=== PATIENT | female | born 1985 | race Caucasian/White ===

== ENCOUNTER 2018-08-26 20:09 | Emergency (ER) | payer SELFPAY ==
[2018-08-26 20:12] VITALS: BP 140/104; PULSE 110; PULSE 116; RESP 18; RESP 19; TEMP 37.3; O2SAT 100; BMI 24.9
[2018-08-26 22:17] VITALS: BP 126/103; PULSE 90; RESP 16; O2SAT 97
[2018-08-26 22:19] LABS: Absolute Neutrophil Count 1.5 X10^3/uL (2.0-7.7); Basophil# 0.05 X10^3/uL; Basophil% 1.2 % (0-1); Eosinophil# 0.15 X10^3/uL; Eosinophils% 3.5 % (0-5); Hematocrit 43.3 % (37-47); Hemoglobin 13.1 g/dl (12.0-15.0); Lymphocyte % 50.8 % (19-41); Mean Corp Hgb Conc 30.3 g/gl (32-36); Mean Corpuscular Hgb 27.9 pg (27.0-32.0); Mean Corpuscular Volume 92.3 fL (81-99); Mean Platelet Vol. 9.3 fl (6.2-12.0); Monocyte% 9.2 % (0-10); Neutrophil # 1.53 X10^3/uL (2.7-7.7); Neutrophil % 35.3 % (47-70); Platelet Count 289 K/mm3 (150-450); RBC Distribution Width CV 16.6 % (11.6-14.6); RBC Distribution Width SD 56.2 fl (35.1-43.9); Red Blood Count 4.69 M/mm3 (4.2-5.4); White Blood Count 4.3 K/mm3 (4.4-11.0)
[2018-08-26 22:22] LABS: Anion Gap 11 (5-15); BUN 8 mg/dL (7-18); Calcium,Total 8.2 mg/dL (8.5-10.1); Chloride 107 mmol/L (98-107); Creatinine, Serum 0.53 mg/dL (0.55-1.02); EST Glomerular Filtration Rate 142 mL/min (>60); Est Glom Filt Rate - Afr Amer 172 mL/min (>60); Estimated Creatinine Clearance 143.98 ml/min; Glucose 86 mg/dL (74-106); Potassium 3.7 mmol/L (3.5-5.1); Sodium Level 144 mmol/L (136-145)
[2018-08-26 22:28] LABS: POSITIVE COUNT NO; POSITIVE DIFFERENTIAL NO; POSITIVE MORPHOLOGY NO
--- NOTE | 2018-08-26 23:15 | ED.VISSUMM ---
- ER Visit Summary Date of Service: 08/26/18 Chief Complaint: Medication withdrawal History of Present Illness: The patient is a 33 F who presents with increased anxiety, paresthesias, and confusion at times is been getting worse over the past 2 days. Patient states she has been out of her Lexapro for the past 4 days. Patient states she feels paresthesias in her hands and feet. Patient denies any weakness. Patient states she is been feeling jittery as well. Patient denies any chest pain or shortness of breath. Patient denies any nausea or vomiting. Physical Examination: Vital signs are stable with the exception of a mild tachycardia of 116. Patient is afebrile. Patient is in no acute distress. Oral mucosa is pink and moist. Neck is supple. Trachea is midline. There is no JVD noted. Heart was regular rate and rhythm. Lungs are clear and equal bilateral. Abdomen is soft. Bowel sounds are normal. There is no tenderness. There is no guarding noted. Skin is warm dry. Cranial nerves II through XII are intact. There are no focal motor or sensory deficits noted. The remaining physical exam is within normal limits. Test Results: CBC and basic metabolic profile were within normal limits. Emergency Department Course and Treatment: Patient was given a dose of Lexapro here. She was given a prescription for Lexapro. Patient was instructed to follow-up with a primary care physician in 7-10 days. Patient understood and was agreeable with the plan. All questions were answered. Disposition: Discharge home Impression: Medication withdrawal This note was generated with [employer] dictation software. It may contain incorrect words, spelling, and punctuation that were not noted in review of the chart prior to signing ED Disposition - Plan for ED Patient: Disposition: Home or Assisted Living Chief Complaint: General Illness Diagnosis: Medication withdrawal Instructions: ED Panic Attack Prescriptions: Venlafaxine XR [Effexor Xr] 150 mg PO DAILY #30 cap.er.24h Referrals: Care Physician,No Primary [Primary Care Provider] - Juanita Guadarrama [NON-STAFF] -
[2018-08-26] MEDS: Venlafaxine XR 150 MG Capsule PO (23:32)
[2018-08-26 23:34] VITALS: BP 132/101; PULSE 95; RESP 16; O2SAT 97
== END 2018-08-26 23:39 | disposition home or self-care (01) ==
PROVIDERS: Emergency Provider Emergency Medicine
DX: F15.93 Other stimulant use, unspecified with withdrawal (principal); F41.9 Anxiety disorder, unspecified; F32.9 Major depressive disorder, single episode, unspecified; Z72.0 Tobacco use; Z79.899 Other long term (current) drug therapy
CPT/HCPCS: 80048; 85025; 99285; A4216

== ENCOUNTER → 2018-10-07 15:35 | Outpatient (CLI) | payer SELFPAY ==
[2018-10-07 18:11] LABS: Anion Gap 9 (5-15); BUN 6 mg/dL (7-18); BUN/Creat Ratio 10.2 RATIO (10-20); Calcium,Total 8.8 mg/dL (8.5-10.1); Chloride 105 mmol/L (98-107); Cholesterol 178 mg/dL (200); Creatinine, Serum 0.59 mg/dL (0.55-1.02); EST Glomerular Filtration Rate 126 mL/min (>60); Est Glom Filt Rate - Afr Amer 152 mL/min (>60); Glucose 101 mg/dL (74-106); High Density Lipoprotein 63 mg/dL; Potassium 4.2 mmol/L (3.5-5.1); Sodium Level 141 mmol/L (136-145); Thyroid Stim Hormone (TSH) 1.26 uIU/mL (0.358-3.74); Triglycerides 87 mg/dL; Very Low Density Lipoprotein 17 mg/dL (5-40)
== END ==
PROVIDERS: Visit Provider Family Medicine
DX: Z00.00 Encounter for general adult medical examination without abnormal findings (principal)
CPT/HCPCS: 36415; 80048; 80061; 84443

== ENCOUNTER 2021-10-16 14:13 | Inpatient (IN) | payer MEDICAID, SELFPAY ==
[2021-10-16 14:14] VITALS: BP 132/94; PULSE 114; RESP 16; TEMP 36.9; O2SAT 100; BMI 22.4
--- NOTE | 2021-10-16 15:25 | EDS_ITS ---
HPI HPI - GI History of Present Illness Chief Complaint: Edema Detail of Chief Complaint: Diarrhea. Informant: patient Abdominal Pain/Flank Pain Onset: Days Context: Gradual Onset Timing: Intermittent Current Severity: Mild Maximum Severity: Mild Worsened by: Nothing Relieved by: Nothing Nausea/Vomiting/Emesis GI Symptom: Positive for Nausea and Vomiting Onset: Days Severity: Mild Diarrhea/Melena/Hematochezia GI Symptom: Positive for Diarrhea; Negative for Melena and Hematochezia Onset: Days Stool Quality: Positive for Watery Severity: Moderate Associated Symptoms Associated Symptoms: Negative for Dysuria, Frequency, Hematuria and Urgency Narrative Narrative: 36-year-old female history of liver cirrhosis and C. difficile. Was actually hospitalized at [facility] because she lives in [place] about 2 weeks ago. She had to be discharged in the hospital because her mother recently and she is now in this area dealing with that issue and seeing family. States that she normally gets paracentesis to drain ascites about every 2 weeks has been 3 weeks since her last paracentesis. She also states that her diarrhea has gotten worse. She is having nausea and vomiting. No fever. No dysuria. She has had all the symptoms in the past. Prior similar symptoms: Yes Recent Illness/Hospitalization: Yes [facility] Medical History Anxiety and depression Cirrhosis, alcoholic Home Medications acamprosate 666 mg PO TID 10/16/21 [History Last Taken Unknown] cholecalciferol (vitamin D3) 1,250 mcg PO QWEEK 10/16/21 [History Last Taken Unknown] escitalopram oxalate [Lexapro] 10 mg PO DAILY 10/16/21 [History Last Taken Unknown] furosemide 40 mg PO DAILY 10/16/21 [History Last Taken Unknown] gabapentin 300 mg PO QHS 10/16/21 [History Last Taken Unknown] lactulose 20 g PO DAILY 10/16/21 [History Last Taken Unknown] spironolactone 100 mg PO DAILY 10/16/21 [History Last Taken Unknown] Allergy/AdvReac Type Severity Reaction Status Date / Time No Known Allergies Allergy Verified 10/16/21 14:18 Surgical History History of tonsillectomy Hx of breast reduction, elective Social History Smoking Status: Current some day smoker tobacco type: cigarettes ROS ROS ED ROS Narrative Nausea, vomiting and diarrhea. Review of Systems ROS Unobtainable: Denies due to encephalopathy Constitutional Constitutional ED: Denies chills or fever(s) ENT ENT ED: Denies ear pain Cardiovascular Cardiovascular: Denies chest pain or palpitations Respiratory/Chest Respiratory/Chest: Denies cough, dyspnea or sputum Gastrointestinal Gastrointestinal: Reports abdominal pain, diarrhea, nausea and vomiting Genitourinary Genitourinary ED: Denies dysuria Musculoskeletal Musculoskeletal: Denies myalgias Integumentary Denies rash Neurologic Neurologic: Denies headache(s) Psychiatric Psychiatric: Denies depression Endocrine Endocrinology: Denies polyuria Hematologic/Lymphatic Hematologic/Lymphatic: Denies easy bruising Allergic/Immunologic Allergic/Immunologic ED: Denies urticaria EXAM Physical Exam Narrative Exam Narrative: 36-year-old female no acute distress vital signs stable tachycardic.. H EENT exam LoJaimiess memories. Neck nontender no JVD. Lungs clear to auscultation. Heart tachycardic rate about 114 no murmur. Abdomen distended with ascites. Nontender. No peritoneal signs. Moving all 4 extremities. The extremities are thin. Cachectic. Normal client support consultant strength. Normal dorsi plantar flexion. No edema. Neurologically she is awake and alert with no focal motor deficits. Const Vital Signs: 10/16/21 14:14 Temperature 98.5 F Temperature Source Temporal Pulse Rate 114 H Respiratory Rate 16 Blood Pressure 132/94 H Blood Pressure Mean 106 Pulse Ox 100 Oxygen Delivery Method Room Air Positive well nourished, well developed and cachectic; Negative for obese, contractures or unkempt General Appearance ED: well developed, cachectic and NAD; Negative for unkempt, contractures or pallor Nutritional Appearance: cachectic; Negative for obese HEENT Reports dry mucous membranes normocephalic and atraumatic Mouth ED: Yes dry mucous membranes Mouth: dry mucous membranes Eyes PERRL and EOMs intact bilaterally Neck no lymphadenopathy, supple and no JVD General: Negative for tenderness Resp normal respiratory effort and clear to auscultation bilaterally Auscultation: Negative for rales, rhonchi or wheezes Cardio regular rhythm and no murmurs; Negative for regular rate Rate: tachycardic GI non-tender and no masses; Negative for non-distended GI Narrative: Distended with ascites fluid. Auscultation: normoactive bowel sounds Palpation: soft; Negative for tender, guarding or rigid Back/Spine no CVA tenderness General Back: Negative for CVA tenderness Cervical Spine: Negative for cervical spine tenderness Thoracic Spine / Upper Back: Negative for thoracic spinal tenderness Extremity full ROM General Extremety ED: Negative for edema or tenderness General Extremity: Negative for edema Neuro moves all extremities Sensorium / Orientation: alert, oriented to person, oriented to place and oriented to time; Negative for orientation impaired, confused, lethargic or stuporous Motor Exam: strength 5/5 throughout Psych mental status grossly normal and thought process normal Appearance: Negative for unkempt Mood & Affect: Negative for depressed or tearful Skin no wounds General Skin Exam: Negative for jaundice or pallor Lesions: no lesions Rashes: no rashes MDM MDM MDM Narrative Medical decision making narrative: 36-year-old female known history of cirrhosis and C. difficile. Having diarrhea. Requested to have paracentesis I explained to her that we did not have that available on the weekend since her interventional radiologist is here Sunday through Sunday. Patient clinically looks dehydrated. She will be treated with IV fluids. Screening labs are being obtained. She will also be given Zofran for nausea. Lab Data Attestation: I reviewed the patient's lab results. Lab results narrative: CBC showed elevated white count of 14.2. H&H 10.1 and 30.7. Electrolytes show sodium 133. Gap of 8 normal BUN and creatinine of 5 and 0.8. Liver enzymes unremarkable other than a total bilirubin of 3.5. Alkaline phosphatase 147. Lipase 42. UA negative. Labs: Laboratory Results - last 24 hr 10/16/21 10/16/21 10/16/21 15:35 15:35 16:30 WBC 14.2 H RBC 3.34 L Hgb 10.1 L Hct 30.7 L MCV 91.9 MCH 30.2 MCHC 32.9 RDW Std Deviation 52.4 H RDW Coeff of [place] 15.6 H Plt Count 318 MPV 8.9 Immature Gran % (Auto) 0.400 Neut % (Auto) 71.6 H Lymph % (Auto) 19.0 [place] % (Auto) 7.0 Eos % (Auto) 1.0 Baso % (Auto) 1.0 Absolute Neuts (auto) 10.2 H Absolute Lymphs (auto) 2.70 Nucleated RBC % 0 Sodium 133 L Potassium 3.3 L Chloride 96 L Carbon Dioxide 29.0 Anion Gap 8 BUN 5 L Creatinine 0.81 Estim Creat Clear Calc 95.17 Est GFR (MDRD) Af Amer 104 Est GFR (MDRD) Non-Af 86 BUN/Creatinine Ratio 6.2 L Glucose 106 Calcium 9.0 Total Bilirubin 3.50 H AST 40 H ALT 18 Alkaline Phosphatase 147 H Total Protein 6.0 L Albumin 2.7 L Globulin 3.3 Albumin/Globulin Ratio 0.8 L Lipase 42 L Urine Color Yellow Urine Clarity Sl. Cloudy Urine pH 7.0 Ur Specific [place] 1.010 Urine Protein 30 H Urine Glucose (UA) Normal Urine Ketones Negative Urine Occult Blood Negative Urine Nitrite Negative Urine Bilirubin Negative Urine Urobilinogen Normal Ur Leukocyte Esterase 25 H Urine RBC 0 SEEN Urine WBC 0-5 SEEN Ur Squamous Epith Cells 0-5 SEEN Amorphous Sediment 1+ PHOS Urine Bacteria 0 SEEN Urine Mucus 0 SEEN Discharge Plan Triage Chief Complaint: Edema ED Provider: Silvestre Naranjo Dx/Rx/DC Orders Prescriptions: No Action furosemide 40 mg Tablet 40 mg PO DAILY RF: 0 spironolactone 100 mg Tablet 100 mg PO DAILY RF: 0 gabapentin 300 mg Capsule 300 mg PO QHS RF: 0 escitalopram oxalate [Lexapro] 10 mg Tablet 10 mg PO DAILY RF: 0 acamprosate 333 mg Tablet,Delayed Release (Dr/Ec) 666 mg PO TID RF: 0 cholecalciferol (vitamin D3) 1,250 mcg (50,000 unit) Capsule 1,250 mcg PO QWEEK RF: 0 lactulose 20 gram/30 mL Solution 20 g PO DAILY RF: 0
[2021-10-16] MEDS: 0.9% Normal Saline 1,000 ML 1000 ML IV (15:38)
[2021-10-16] MEDS: Ondansetron 4 MG/2 ML Vial IV (15:38)
[2021-10-16 15:47] LABS: Absolute Neutrophil Count 10.2 X10^3/uL (2.0-7.7); Basophil# 0.14 X10^3/uL; Eosinophil# 0.14 X10^3/uL; Hematocrit 30.7 % (37-47); Hemoglobin 10.1 g/dL (12.0-15.0); Mean Corp Hgb Conc 32.9 g/dL (32-36); Mean Corpuscular Hgb 30.2 pg (27.0-32.0); Mean Corpuscular Volume 91.9 fL (81-99); Mean Platelet Vol. 8.9 fl (6.2-12.0); Monocyte# 0.99 X10^3/uL; NRBC Flagged by Analyzer 0 % (0-5); Neutrophil # 10.21 X10^3/uL (2.7-7.7); Neutrophil % 71.6 % (47-70); Platelet Count 318 K/mm3 (150-450); RBC Distribution Width CV 15.6 % (11.6-14.6); RBC Distribution Width SD 52.4 fl (35.1-43.9); Red Blood Count 3.34 M/mm3 (4.2-5.4); White Blood Count 14.2 K/mm3 (4.4-11.0)
[2021-10-16 16:02] LABS: ALB/GLOB Ratio 0.8 RATIO (0.9-2.4); AST(SGOT) 40 U/L (15-37); Alanine Aminotransfer ALT/SGPT 18 U/L (13-56); Albumin, Serum 2.7 g/dL (3.2-5.0); Alkaline Phosphatase 147 U/L (45-117); Anion Gap 8 (5-15); BUN 5 mg/dL (7-18); BUN/Creat Ratio 6.2 RATIO (10-20); Chloride 96 mmol/L (98-107); Creatinine, Serum 0.81 mg/dL (0.55-1.02); EST Glomerular Filtration Rate 86 mL/min (>60); Est Glom Filt Rate - Afr Amer 104 mL/min (>60); Estimated Creatinine Clearance 95.17 ml/min; Globulin 3.3 g/dL (2.2-4.2); Glucose 106 mg/dL (74-106); Lipase 42 U/L (73-393); Potassium 3.3 mmol/L (3.5-5.1); Sodium Level 133 mmol/L (136-145)
[2021-10-16 16:47] LABS: Bacteria 0 SEEN /hpf (None Seen); Color, Urine Yellow (Yellow); Glucose, Dipstick Normal (Normal); Ketone-Dipstick Negative (Negative); Leukocyte Esterase-Dipstick 25 /ul (Negative); Mucous, Urine 0 SEEN /hpf (<or=2+); Nitrite-Dipstick Negative (Negative); Occult Blood-Urine Negative /ul (Negative); Protein-Dipstick 30 mg/dl (Negative); Urine Bilirubin Dipstick Negative (Negative); Urine Clarity Sl. Cloudy (Clear); Urine Urobilinogen Normal (Normal)
[2021-10-16 16:53] LABS: Red Blood Cells-Urine 0 SEEN /hpf (0-5)
[2021-10-16 16:54] LABS: Amorphous Sediment 1+ PHOS; Squamous Epithelial Cells - UA 0-5 SEEN /hpf (5-10); White Blood Cells 0-5 SEEN /hpf (0-5)
[2021-10-16 18:16] VITALS: BP 119/72; PULSE 97; RESP 16; TEMP 36.9; O2SAT 100
--- NOTE | 2021-10-16 18:42 | PCM.HP.STD ---
HPI - General General Date of Admission: 10/16/21 Date of Service: 10/16/21 Chief Complaint: Abdominal pain and diarrhea HPI Narrative STEF DOLAN, is a 36 F who presents presents with increased abdominal pain and ascites and refractory diarrhea. Patient has a history of alcoholic cirrhosis with recent meld score of around 12-13. She is being evaluated at the [facility] for her cirrhosis but is not a transplant candidate yet. Patient 2 weeks ago was being treated for C. difficile colitis. Patient left the hospital with vancomycin as she had to come to this area for the of her mother. Patient completed the vancomycin about 3 days ago and noted that the diarrhea got worse afterwards. Patient also has ascites which she gets drained roughly every 2 weeks and has scheduled appointment but she missed her last appointment due to the of her mother. Patient has a follow-up appointment this Sunday but she does not feel that she can make and is requesting a paracentesis. [facility] Medical History Anxiety and depression Cirrhosis, alcoholic Home Medications acamprosate 666 mg PO TID 10/16/21 [History Last Taken Unknown] cholecalciferol (vitamin D3) 1,250 mcg PO QWEEK 10/16/21 [History Last Taken Unknown] escitalopram oxalate [Lexapro] 10 mg PO DAILY 10/16/21 [History Last Taken Unknown] furosemide 40 mg PO DAILY 10/16/21 [History Last Taken Unknown] gabapentin 300 mg PO QHS 10/16/21 [History Last Taken Unknown] lactulose 20 g PO DAILY 10/16/21 [History Last Taken Unknown] spironolactone 100 mg PO DAILY 10/16/21 [History Last Taken Unknown] Allergy/AdvReac Type Severity Reaction Status Date / Time No Known Allergies Allergy Verified 10/16/21 14:18 Surgical History History of tonsillectomy Hx of breast reduction, elective Social History (Updated 10/16/21 @ 18:[address] Sharan Blackmon DO) Smoking Status: Current some day smoker tobacco type: cigarettes alcohol intake: former details: Quit but 8 to 9 months ago ROS ROS Narrative Not eating much. All review of systems were negative except as mentioned above in the history of present illness and the other review of systems. Vital Signs Vital Signs Vital Signs: 10/16/21 14:14 10/16/21 18:16 Temperature 36.9 C 36.9 C Temperature Source Temporal Temporal Pulse Rate 114 H 97 Respiratory Rate 16 16 Blood Pressure 132/94 H 119/72 Blood Pressure Mean 106 87 Pulse Ox 100 100 Oxygen Delivery Method Room Air Room Air Weight Weight: 64.864 kg Body Mass Index (BMI) 22.4 Physical Exam Const alert Constitutional Narrative: Appears older than stated age. Gaunt. General Appearance: cooperative HEENT normocephalic and head/scalp atraumatic Neck no lymphadenopathy Neck Narrative: No thyromegaly Resp normal respiratory effort, no retractions, no use of accessory muscles and clear to auscultation bilaterally Cardio regular rate and regular rhythm Cardio Narrative: 2 out of 6 holosystolic murmur GI GI Narrative: Markedly distended but not taut. Minimal tenderness. Umbilicus almost smoothed over due to the distention. Extremity normal to inspection and no clubbing, cyanosis or edema Skin no rashes or lesions noted Skin Narrative: Jaundice ashen appearance. Neuro Sensorium / Orientation: awake and alert Psych affect normal Results Lab / Micro Data Result Diagrams: 10/16/21 15:35 10/16/21 15:35 Labs: Laboratory Results - last 24 hr 10/16/21 15:35: WBC 14.2 H, RBC 3.34 L, Hgb 10.1 L, Hct 30.7 L, MCV 91.9, MCH 30.2, MCHC 32.9, RDW Std Deviation 52.4 H, RDW Coeff of [place] 15.6 H, Plt Count 318, MPV 8.9, Immature Gran % (Auto) 0.400, Neut % (Auto) 71.6 H, Lymph % (Auto) 19.0, [place] % (Auto) 7.0, Eos % (Auto) 1.0, Baso % (Auto) 1.0, Absolute Neuts (auto) 10.2 H, Absolute Lymphs (auto) 2.70, Nucleated RBC % 0 10/16/21 15:35: Sodium 133 L, Potassium 3.3 L, Chloride 96 L, Carbon Dioxide 29.0, Anion Gap 8, BUN 5 L, Creatinine 0.81, Estim Creat Clear Calc 95.17, Est GFR (MDRD) Af Amer 104, Est GFR (MDRD) Non-Af 86, BUN/Creatinine Ratio 6.2 L, Glucose 106, Calcium 9.0, Total Bilirubin 3.50 H, AST 40 H, ALT 18, Alkaline Phosphatase 147 H, Total Protein 6.0 L, Albumin 2.7 L, Globulin 3.3, Albumin/Globulin Ratio 0.8 L, Lipase 42 L 10/16/21 16:30: Urine Color Yellow, Urine Clarity Sl. Cloudy, Urine pH 7.0, Ur Specific [place] 1.010, Urine Protein 30 H, Urine Glucose (UA) Normal, Urine Ketones Negative, Urine Occult Blood Negative, Urine Nitrite Negative, Urine Bilirubin Negative, Urine Urobilinogen Normal, Ur Leukocyte Esterase 25 H, Urine RBC 0 SEEN, Urine WBC 0-5 SEEN, Ur Squamous Epith Cells 0-5 SEEN, Amorphous Sediment 1+ PHOS, Urine Bacteria 0 SEEN, Urine Mucus 0 SEEN Assessment & Plan Assessment/Plan (1) Ascites due to alcoholic cirrhosis: (2) C. difficile colitis: PLAN: 1. 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 While she is in the hospital, for 1 day she received metronidazole. Patient that she does not have severe C. difficile and no feel that there is any indication for IV metronidazole but treat her for C. difficile with vancomycin again. Would recommend 10-day course with a taper as this is recurrent. The taper would begin after the 10 days and would be 3 times daily for a week twice daily for a week then daily for a week then every 48 hours for 1 week and then every 3 days for 1 week. If she is refractory to the vancomycin she may need to be put on Dificid or evaluation for fecal transplant. I advised patient that she would not be receiving any medications to slow her bowels, such as loperamide. 2. Ascites, massive Secondary to alcoholic cirrhosis She is not hot nor is there any clinical suspicion for spontaneous bacterial peritonitis She does not feel that she can wait until this coming Sunday. I told her that we can see if our interventional radiologist is available tomorrow. Told her I'm not sure if he is available but if he is then we can have the paracentesis performed. Patient does have a large amount of ascites and I suspect that she will require albumin afterwards. I put in orders for albumin to be administered after her paracentesis tomorrow assuming that can be done. Patient is on furosemide as well as spironolactone. Will increase her furosemide from 40 daily to twice daily and continue with spironolactone at 100 daily. Patient will need to follow-up with her forest economics professor. Patient is having abdominal pain so we'll have oxycodone ordered for but I would not prescribe that for her upon discharge. 3. Cirrhosis Alcoholic Patient seeing wind instrument repairer at [facility] is undergoing evaluation for liver transplant though not on the list at this point time. Still smokes which she is well aware that she needs to quit in order to be a candidate 4. VTE prophylaxis: Not indicated given her observation status. Charges/Coding Visit Charges OBSV E&M: 90333 Initial observation care L3
[2021-10-16 18:45] VITALS: BP 119/72; PULSE 97; RESP 16; TEMP 36.9; O2SAT 100
--- NOTE | 2021-10-16 19:33 | US_ITS ---
PROCEDURE: Ultrasound guided paracentesis. DATE OF EXAMINATION: 10/17/2021. INDICATION: Female, 36 years old. Ascites. PHYSICIAN: Obie Mijares M.D. TECHNIQUE: The risks, benefits, and alternatives to the procedure were explained to the patient. The specific risks of bleeding, infection, and damage to bowel were detailed and accepted. Witnessed informed consent was obtained. The abdomen was ultrasonographically surveyed. An appropriate pocket of fluid was identified at the left lower quadrant. The skin were cleaned and prepped in the usual sterile fashion. Using ultrasound guidance, the peritoneal cavity was accessed with a 5-Macedonian paracentesis needle/catheter system. The trocar was removed. A total of 9050 ml of lakesha-colored fluid were removed from the peritoneal cavity. The catheter was removed and a sterile dressing was applied. The procedure was well tolerated. US/Paracentesis with US IMPRESSION: Ultrasound guided paracentesis. Electronically Signed: Obie Mijares MD at 15:25 EST ,
[2021-10-16 19:49] VITALS: BMI 22.6
[2021-10-16 19:50] VITALS: BP 126/81; PULSE 88; RESP 24; TEMP 37.5; O2SAT 100
[2021-10-16] MEDS: oxyCODONE 5 MG Tablet PO (20:40)
[2021-10-16] MEDS: Potassium Chloride Oral Tablet 20 MEQ 40 MEQ PO (20:40)
[2021-10-16] MEDS: Gabapentin 300 MG Capsule PO (20:41)
[2021-10-16] MEDS: Ergocalciferol 1.25 MG (50, 000 UNIT) Capsule PO (21:52)
[2021-10-17] MEDS: Vancomycin 125 MG/5 ML Susp PO.SYRINGE PO ×4 (00:20→18:32)
[2021-10-17 01:50] VITALS: BP 135/92; PULSE 105; RESP 18; TEMP 37.3; O2SAT 98
[2021-10-17] MEDS: oxyCODONE 5 MG Tablet PO ×3 (02:29→19:59)
[2021-10-17] MEDS: LORazepam 1 MG Tablet PO (03:29)
[2021-10-17 06:01] LABS: Absolute Lymphocyte Count 3.88 X10^3/uL (0.83-4.51); Absolute Neutrophil Count 9.1 X10^3/uL (2.0-7.7); Basophil# 0.18 X10^3/uL; Basophil% 1.2 % (0-1); Eosinophil# 0.43 X10^3/uL; Eosinophils% 2.9 % (0-5); Hematocrit 27.5 % (37-47); Hemoglobin 8.7 g/dL (12.0-15.0); Lymphocyte # 3.88 X10^3/ul (0.83-4.51); Lymphocyte % 26.6 % (19-41); Mean Corp Hgb Conc 31.6 g/dL (32-36); Mean Corpuscular Hgb 29.1 pg (27.0-32.0); Mean Platelet Vol. 8.9 fl (6.2-12.0); Monocyte# 0.92 X10^3/uL; Monocyte% 6.3 % (0-10); NRBC Flagged by Analyzer 0 % (0-5); Neutrophil # 9.14 X10^3/uL (2.7-7.7); Neutrophil % 62.6 % (47-70); Platelet Count 307 K/mm3 (150-450); RBC Distribution Width CV 15.4 % (11.6-14.6); RBC Distribution Width SD 51.3 fl (35.1-43.9); Red Blood Count 2.99 M/mm3 (4.2-5.4); White Blood Count 14.6 K/mm3 (4.4-11.0)
[2021-10-17 06:13] LABS: International Normalized Ratio 1.5; Prothrombin Time (Protime)PT. 17.7 SECONDS (11.7-14.9)
[2021-10-17 06:29] LABS: ALB/GLOB Ratio 0.8 RATIO (0.9-2.4); AST(SGOT) 33 U/L (15-37); Alanine Aminotransfer ALT/SGPT 17 U/L (13-56); Albumin, Serum 2.4 g/dL (3.2-5.0); Alkaline Phosphatase 139 U/L (45-117); Anion Gap 6 (5-15); BUN 5 mg/dL (7-18); BUN/Creat Ratio 6.5 RATIO (10-20); Calcium,Total 7.9 mg/dL (8.5-10.1); Chloride 96 mmol/L (98-107); Creatinine, Serum 0.76 mg/dL (0.55-1.02); EST Glomerular Filtration Rate 92 mL/min (>60); Est Glom Filt Rate - Afr Amer 111 mL/min (>60); Estimated Creatinine Clearance 101.43 ml/min; Globulin 3.1 g/dL (2.2-4.2); Glucose 115 mg/dL (74-106); Magnesium 2.1 mg/dL (1.6-2.6); Potassium 3.5 mmol/L (3.5-5.1); Protein, Total 5.5 g/dL (6.4-8.2); Sodium Level 130 mmol/L (136-145)
[2021-10-17 08:01] VITALS: BP 128/90; PULSE 102; RESP 18; TEMP 36.8; O2SAT 98
--- NOTE | 2021-10-17 09:05 | PCM.PN.HOSP ---
Subjective Subjective Patient completed 7 days of p.o. vancomycin and her diarrhea was better but it recurred with large volume high frequency diarrhea. Currently does not have abdominal pain. Patient also has large ascites due to decompensated alcoholic cirrhosis. Follows [facility] transplant clinic undergoing work-up for transplant listing.Did not drink alcohol for last 1 year. Objective Data Objective Data Vital Signs: Vital Signs Temp Pulse Resp BP Pulse Ox 98.2 F 102 H 18 128/90 H 98 10/17/21 08:01 10/17/21 08:01 10/17/21 08:01 10/17/21 08:01 10/17/21 08:01 Oxygen Delivery Method Room Air Weight: 144 lb 13.499 oz Body Mass Index (BMI) 22.6 Intake & Output: Intake and Output for Last 24 Hours 10/15/21 10/16/21 10/17/21 23:59 23:59 23:59 Intake Total 1000 / 1600 800 / 800 Balance 1000 / 1600 800 / 800 Lab / Micro Data Result Diagrams: 10/17/21 05:44 10/17/21 05:44 Labs: Laboratory Results - last 24 hr 10/16/21 15:35: WBC 14.2 H, RBC 3.34 L, Hgb 10.1 L, Hct 30.7 L, MCV 91.9, MCH 30.2, MCHC 32.9, RDW Std Deviation 52.4 H, RDW Coeff of [place] 15.6 H, Plt Count 318, MPV 8.9, Immature Gran % (Auto) 0.400, Neut % (Auto) 71.6 H, Lymph % (Auto) 19.0, [place] % (Auto) 7.0, Eos % (Auto) 1.0, Baso % (Auto) 1.0, Absolute Neuts (auto) 10.2 H, Absolute Lymphs (auto) 2.70, Nucleated RBC % 0 10/16/21 15:35: Sodium 133 L, Potassium 3.3 L, Chloride 96 L, Carbon Dioxide 29.0, Anion Gap 8, BUN 5 L, Creatinine 0.81, Estim Creat Clear Calc 95.17, Est GFR (MDRD) Af Amer 104, Est GFR (MDRD) Non-Af 86, BUN/Creatinine Ratio 6.2 L, Glucose 106, Calcium 9.0, Total Bilirubin 3.50 H, AST 40 H, ALT 18, Alkaline Phosphatase 147 H, Total Protein 6.0 L, Albumin 2.7 L, Globulin 3.3, Albumin/Globulin Ratio 0.8 L, Lipase 42 L 10/16/21 16:30: Urine Color Yellow, Urine Clarity Sl. Cloudy, Urine pH 7.0, Ur Specific [place] 1.010, Urine Protein 30 H, Urine Glucose (UA) Normal, Urine Ketones Negative, Urine Occult Blood Negative, Urine Nitrite Negative, Urine Bilirubin Negative, Urine Urobilinogen Normal, Ur Leukocyte Esterase 25 H, Urine RBC 0 SEEN, Urine WBC 0-5 SEEN, Ur Squamous Epith Cells 0-5 SEEN, Amorphous Sediment 1+ PHOS, Urine Bacteria 0 SEEN, Urine Mucus 0 SEEN 10/17/21 05:44: WBC 14.6 H, RBC 2.99 L, Hgb 8.7 L, Hct 27.5 L, MCV 92.0, MCH 29.1, MCHC 31.6 L, RDW Std Deviation 51.3 H, RDW Coeff of [place] 15.4 H, Plt Count 307, MPV 8.9, Immature Gran % (Auto) 0.400, Neut % (Auto) 62.6, Lymph % (Auto) 26.6, [place] % (Auto) 6.3, Eos % (Auto) 2.9, Baso % (Auto) 1.2 H, Absolute Neuts (auto) 9.1 H, Absolute Lymphs (auto) 3.88, Nucleated RBC % 0 10/17/21 05:44: Sodium 130 L, Potassium 3.5, Chloride 96 L, Carbon Dioxide 28.0, Anion Gap 6, BUN 5 L, Creatinine 0.76, Estim Creat Clear Calc 101.43, Est GFR (MDRD) Af Amer 111, Est GFR (MDRD) Non-Af 92, BUN/Creatinine Ratio 6.5 L, Glucose 115 H, Calcium 7.9 L, Magnesium 2.1, Total Bilirubin 2.00 H, AST 33, ALT 17, Alkaline Phosphatase 139 H, Total Protein 5.5 L, Albumin 2.4 L, Globulin 3.1, Albumin/Globulin Ratio 0.8 L 10/17/21 05:44: PT 17.7 H, INR 1.5 Micro: Microbiology 10/16/21 20:26 Stool C. difficile GDH Antigen & Toxins - Final 10/16/21 20:26 Stool C. difficile DNA Amplification - Final Physical Exam Narrative General: Alert, Oriented x3, Cooperative HEENT: Atraumatic, PERRLA, EOMI, Normocephalic Oral: No Gingival or Mucosal Lesions/ Ulcerations Neck: Supple, No JVD, Negative Carotid Bruits Lungs: Air entry diminished in bilateral lung bases. No crepitation/rhonchi Cardiovascular: Regular rate, Regular Rhythm, Normal S1, Normal S2, No murmurs Abdomen: Soft, distended with large volume ascites. No rebound tenderness. No rigidity. Bowel sounds sluggish. : No renal angle tenderness. No suprapubic tenderness. Extremities: No edema, Capillary Refill Less than 3 Seconds Skin: Dilated superficial abdominal veins. No rashes, No breakdown Musculoskeletal: No Tenderness to Palpation of Joints or Extremities Neurological: Cranial nerves II-XII grossly intact, DTR 2+/4 and Symmetrical, Neuro grossly intact Psych/Mental Status: Flat affect. Const Constitutional Narrative: Appears older than stated age. Gaunt. General Appearance: cooperative HEENT normocephalic Neck Neck Narrative: No thyromegaly Cardio Cardio Narrative: 2 out of 6 holosystolic murmur GI GI Narrative: Markedly distended but not taut. Minimal tenderness. Umbilicus almost smoothed over due to the distention. Skin Skin Narrative: Jaundice ashen appearance. Assessment & Plan Assessment/Plan (1) Ascites due to alcoholic cirrhosis: (2) C. difficile colitis: PLAN: 1. Relapsed C. difficile colitis: Patient C. difficile returned after completing 7-day course of vancomycin actually her diarrhea was better but never resolved and recurred with large volume frequent diarrhea. Currently on vancomycin. ID consult reviewed and appreciated. Recommended 10 days COURSE of Dificid course at discharge. 2. Decompensated alcoholic cirrhosis with large volume ascites: Patient gets paracentesis every 2 weeks. Scheduled at 2 PM today. Labs ordered. On IV albumin. Labs ordered including fluid cell count and culture. Less likely for SBP but high risk of worsening of C. difficile if antibiotic is started. . 3. Decompensated alcoholic cirrhosis: Patient is sober for last 1 year. Follows transplant hepatology clinic in the [facility] undergoing evaluation for liver transplant listing. Patient smokes and is aware that she has to quit. Patient is COVID-19 vaccinated x2, overdue for the booster. She agreed to get it here. 4. VTE prophylaxis: Not indicated given her observation status. Charges/Coding Visit Charges Inpatient E&M: 95700 Subs Hosp L2
[2021-10-17] MEDS: Furosemide 40 MG Tablet PO ×2 (09:41→18:33)
[2021-10-17] MEDS: Escitalopram Oxalate 10 MG Tablet PO (09:41)
[2021-10-17] MEDS: Spironolactone 50 MG Tablet 100 MG PO (09:42)
[2021-10-17 14:00] VITALS: BP 119/82; PULSE 100; RESP 18; TEMP 36.9; O2SAT 98
--- NOTE | 2021-10-17 14:01 | PCM.CONS.GEN ---
Assessment & Plan Assessment/Plan (1) C. difficile diarrhea: PLAN: Recurred within a few days of completing 10 day course of po vanc. Back on po vanc here. Would recommend 10 days dificid at discharge. Will write rx to see what cost will be. Will follow, thank you. Acid vaccine x2, overdue for booster, she agrees to get it here. HPI Consult Data Date of Consult: 10/17/21 HPI Narrative HPI Narrative: STEF DOLAN, is a 36 F with etoh cirrhosis complicated by ascites, presented with several days of worsened diarrhea. Reports dx with Cdiff about 2-3 weeks ago. Given 10 day course of po vanc, completed course but then sx started just a few days after that. No prior antibiotics, no prior h/o cdiff. No fever, no blood in stool. Some cramping. Admitted here, restarted on po vanc. Full ROS performed and neg except as noted above. PFSH Medical History Anxiety and depression Cirrhosis, alcoholic Smoker Home Medications acamprosate 666 mg PO TID 10/16/21 [History Last Taken Unknown] cholecalciferol (vitamin D3) 1,250 mcg PO DANIEL 10/16/21 [History Last Taken 10/09/21] escitalopram oxalate [Lexapro] 10 mg PO DAILY 10/16/21 [History Last Taken 10/15/21] furosemide 40 mg PO DAILY 10/16/21 [History Last Taken 10/15/21] gabapentin 300 mg PO QHS 10/16/21 [History Last Taken 10/15/21] lactulose 20 g PO DAILY 10/16/21 [History Last Taken 10/14/21] spironolactone 100 mg PO DAILY 10/16/21 [History Last Taken 10/15/21] Allergy/AdvReac Type Severity Reaction Status Date / Time No Known Allergies Allergy Verified 10/16/21 14:18 Surgical History History of tonsillectomy Hx of breast reduction, elective Social History (Updated 10/16/21 @ 18:[address] Sharan Blackmon DO) Smoking Status: Current some day smoker tobacco type: cigarettes alcohol intake: former details: Quit but 8 to 9 months ago Physical Exam Const alert, oriented x3 and no apparent distress General Appearance: cooperative Exam Limitations: no limitations HEENT normocephalic and head/scalp atraumatic Eyes PERRL and EOMs intact bilaterally Neck supple and No nodes Resp normal air movement and clear to auscultation bilaterally Cardio regular rate and regular rhythm GI GI Narrative: distended Extremity no clubbing, cyanosis or edema Skin no rashes or lesions noted Neuro CN's II-XII intact bilaterally Lab / Micro Data Result Diagrams: 10/17/21 05:44 10/17/21 05:44 Labs: Laboratory Results - last 24 hr 10/16/21 15:35: WBC 14.2 H, RBC 3.34 L, Hgb 10.1 L, Hct 30.7 L, MCV 91.9, MCH 30.2, MCHC 32.9, RDW Std Deviation 52.4 H, RDW Coeff of [place] 15.6 H, Plt Count 318, MPV 8.9, Immature Gran % (Auto) 0.400, Neut % (Auto) 71.6 H, Lymph % (Auto) 19.0, [place] % (Auto) 7.0, Eos % (Auto) 1.0, Baso % (Auto) 1.0, Absolute Neuts (auto) 10.2 H, Absolute Lymphs (auto) 2.70, Nucleated RBC % 0 10/16/21 15:35: Sodium 133 L, Potassium 3.3 L, Chloride 96 L, Carbon Dioxide 29.0, Anion Gap 8, BUN 5 L, Creatinine 0.81, Estim Creat Clear Calc 95.17, Est GFR (MDRD) Af Amer 104, Est GFR (MDRD) Non-Af 86, BUN/Creatinine Ratio 6.2 L, Glucose 106, Calcium 9.0, Total Bilirubin 3.50 H, AST 40 H, ALT 18, Alkaline Phosphatase 147 H, Total Protein 6.0 L, Albumin 2.7 L, Globulin 3.3, Albumin/Globulin Ratio 0.8 L, Lipase 42 L 10/16/21 16:30: Urine Color Yellow, Urine Clarity Sl. Cloudy, Urine pH 7.0, Ur Specific [place] 1.010, Urine Protein 30 H, Urine Glucose (UA) Normal, Urine Ketones Negative, Urine Occult Blood Negative, Urine Nitrite Negative, Urine Bilirubin Negative, Urine Urobilinogen Normal, Ur Leukocyte Esterase 25 H, Urine RBC 0 SEEN, Urine WBC 0-5 SEEN, Ur Squamous Epith Cells 0-5 SEEN, Amorphous Sediment 1+ PHOS, Urine Bacteria 0 SEEN, Urine Mucus 0 SEEN 10/17/21 05:44: WBC 14.6 H, RBC 2.99 L, Hgb 8.7 L, Hct 27.5 L, MCV 92.0, MCH 29.1, MCHC 31.6 L, RDW Std Deviation 51.3 H, RDW Coeff of [place] 15.4 H, Plt Count 307, MPV 8.9, Immature Gran % (Auto) 0.400, Neut % (Auto) 62.6, Lymph % (Auto) 26.6, [place] % (Auto) 6.3, Eos % (Auto) 2.9, Baso % (Auto) 1.2 H, Absolute Neuts (auto) 9.1 H, Absolute Lymphs (auto) 3.88, Nucleated RBC % 0 10/17/21 05:44: Sodium 130 L, Potassium 3.5, Chloride 96 L, Carbon Dioxide 28.0, Anion Gap 6, BUN 5 L, Creatinine 0.76, Estim Creat Clear Calc 101.43, Est GFR (MDRD) Af Amer 111, Est GFR (MDRD) Non-Af 92, BUN/Creatinine Ratio 6.5 L, Glucose 115 H, Calcium 7.9 L, Magnesium 2.1, Total Bilirubin 2.00 H, AST 33, ALT 17, Alkaline Phosphatase 139 H, Total Protein 5.5 L, Albumin 2.4 L, Globulin 3.1, Albumin/Globulin Ratio 0.8 L 10/17/21 05:44: PT 17.7 H, INR 1.5 Micro: Microbiology 10/16/21 20:26 Stool C. difficile GDH Antigen & Toxins - Final 10/16/21 20:26 Stool C. difficile DNA Amplification - Final
[2021-10-17 14:27] VITALS: BP 112/84; BP 114/82; BP 118/82; PULSE 102; PULSE 103; PULSE 104; RESP 16; RESP 18; TEMP 37.2; O2SAT 100; O2SAT 95
[2021-10-17] MEDS: Lidocaine 2% (20 ml mdv) 20 ML Vial INFILT (14:30)
[2021-10-17] MEDS: Albumin Human 25% (100 mL) 25 GM/100 ML BAG IV ×2 (15:28→19:56)
[2021-10-17 19:23] VITALS: BP 109/69; PULSE 99; RESP 18; TEMP 37.2; O2SAT 100
[2021-10-17] MEDS: Gabapentin 300 MG Capsule PO (19:59)
[2021-10-18 00:15] VITALS: BP 116/76; PULSE 96; RESP 18; TEMP 37.1; O2SAT 97
[2021-10-18] MEDS: Vancomycin 125 MG/5 ML Susp PO.SYRINGE PO ×3 (00:19→11:50)
[2021-10-18 02:30] VITALS: BP 122/78; PULSE 98; RESP 18; TEMP 36.9; O2SAT 98
[2021-10-18] MEDS: 0.9% Saline Lock 10 ML Syringe IV (06:17)
[2021-10-18 06:22] LABS: Absolute Lymphocyte Count 2.71 X10^3/uL (0.83-4.51); Absolute Neutrophil Count 8.3 X10^3/uL (2.0-7.7); Basophil# 0.13 X10^3/uL; Basophil% 1.1 % (0-1); Eosinophil# 0.31 X10^3/uL; Eosinophils% 2.5 % (0-5); Hematocrit 24.7 % (37-47); Hemoglobin 8.1 g/dL (12.0-15.0); Lymphocyte # 2.71 X10^3/ul (0.83-4.51); Mean Corp Hgb Conc 32.8 g/dL (32-36); Mean Corpuscular Hgb 29.8 pg (27.0-32.0); Mean Corpuscular Volume 90.8 fL (81-99); Mean Platelet Vol. 9.2 fl (6.2-12.0); Monocyte# 0.85 X10^3/uL; Monocyte% 6.9 % (0-10); NRBC Flagged by Analyzer 0 % (0-5); Neutrophil % 67.2 % (47-70); Platelet Count 236 K/mm3 (150-450); RBC Distribution Width CV 15.4 % (11.6-14.6); RBC Distribution Width SD 50.4 fl (35.1-43.9); Red Blood Count 2.72 M/mm3 (4.2-5.4); White Blood Count 12.3 K/mm3 (4.4-11.0)
[2021-10-18 06:46] LABS: AST(SGOT) 27 U/L (15-37); Alanine Aminotransfer ALT/SGPT 15 U/L (13-56); Albumin, Serum 2.6 g/dL (3.2-5.0); Alkaline Phosphatase 133 U/L (45-117); Anion Gap 7 (5-15); BUN 4 mg/dL (7-18); BUN/Creat Ratio 4.9 RATIO (10-20); Calcium,Total 7.9 mg/dL (8.5-10.1); Chloride 94 mmol/L (98-107); Creatinine, Serum 0.82 mg/dL (0.55-1.02); EST Glomerular Filtration Rate 84 mL/min (>60); Est Glom Filt Rate - Afr Amer 102 mL/min (>60); Estimated Creatinine Clearance 94.01 ml/min; Globulin 2.5 g/dL (2.2-4.2); Glucose 161 mg/dL (74-106); Potassium 3.3 mmol/L (3.5-5.1); Protein, Total 5.1 g/dL (6.4-8.2); Sodium Level 128 mmol/L (136-145)
[2021-10-18 08:36] VITALS: BP 108/77; PULSE 98; RESP 18; TEMP 37; O2SAT 98
[2021-10-18] MEDS: Potassium Chloride Oral Tablet 20 MEQ PO (08:46)
[2021-10-18] MEDS: Spironolactone 50 MG Tablet 100 MG PO (08:58)
[2021-10-18] MEDS: Escitalopram Oxalate 10 MG Tablet PO (08:59)
[2021-10-18] MEDS: Furosemide 40 MG Tablet PO (08:59)
--- NOTE | 2021-10-18 10:00 | PCM.DC ---
Discharge Instructions Diet Discharge Diet: 2000 mg Sodium Diet Dressing / Incision Call your doctor if you observe: Fever of 101 or Higher, Coldness, Increased Pain, Numbness or Tingling, Change in Color, Inability to urinate, Inability to have a bowel movement, Shortness of breath, Dizziness, Fainting spells, Swelling in the ankles, Chest pain, Prolonged hiccupping, Increased palpitations (irregular heartbeat), Calf discomfort and Uncontrolled pain Follow Up Care Test Results: Test results from this visit will be discussed in further detail at your follow-up appointment, if applicable. Discharge Plan Admission Admit Date/Time: 10/16/21 18:36 Primary Reason for Your Visit: C. difficile colitis Attending Provider: Eugene Fish Consulting Providers: Woodrow Keen Additional Instructions / Restrictions: Patient has appointment at the transplant clinic [facility] next week. She has history of esophageal varices status post banding, ascites features of decompensated cirrhosis. Discharge Orders/Prescriptions Prescriptions: New Dificid 200 mg tablet 200 mg PO BID 10 Days Qty: 20 RF: 0 Continued spironolactone 100 mg Tablet 100 mg PO DAILY RF: 0 gabapentin 300 mg Capsule 300 mg PO QHS RF: 0 escitalopram oxalate [Lexapro] 10 mg Tablet 10 mg PO DAILY RF: 0 acamprosate 333 mg Tablet,Delayed Release (Dr/Ec) 666 mg PO TID RF: 0 cholecalciferol (vitamin D3) 1,250 mcg (50,000 unit) Capsule 1,250 mcg PO DANIEL RF: 0 furosemide 40 mg Tablet 40 mg PO DAILY Qty: 0 RF: 0 lactulose 20 gram/30 mL Solution 20 g PO DAILY Qty: 0 RF: 0 Referrals / Follow Up: Macho Valdes [Other] - In 1 Week (For lab C. difficile.)
--- NOTE | 2021-10-18 10:10 | CASEMGMT ---
Addendum entered by Alexsandra Guerrero 10/18/21 13:19: [facility] Bin # [id number] PCN [id number] ID [id number] Group ID [id number] Original Note: KAY ACOSTA Assessment: Face to Face with pt for initial transition planning/care coordination assessment. KAY ACOSTA introduced self and role at [facility], pt voices understanding and consents to assessment. Pt is A/O x4 and answers all questions appropriately at this time. Pt sitting up in bed with mother in law at bedside. Care providers, pharmacy, and demographics verified/updated. Admitting Dx: possible Cdiff, ascites PCP:Dial Specialists:Foreign, GI; Evans, hepato; Aida, psych; Bash, counselor. Pt also gets a paracentesis every 2 wks and is scheduled again this Sunday at [facility]. Preferred Pharmacy: [facility] [place] Insurance: [facility] Community Plan Prescription Benefit: yes LW/HPOA: Pt denies having a LW/DPOA and denies need for info regarding AD. Pt states she has the info for this but just needs to complete them. LNOK: Yossi Galicia, sig other; SHAUN Pandey Living Arrangements: Pt lives with sig other in a ground level apt with 3 small steps to enter. Pt reports she is I in ADL' s and denies concerns at home. Transportation: Pt drives self and denies concerns with transportation. DME/HHC/SNF: Pt denies having any DME, hx of HHC or SNF stays. Discussed with pt that she is ordered a medication called Dificid and it is $5000 shaffer calderón. TC to [facility] and they do not have in stock. TC to [facility] Retail pharmacy, [facility] does not have pt BIN and PCN number on file to run for cost. Pt states that her card is in [place] and she has no way to get a copy or picture of it today. She states she gets rx at [facility] in [place], she gave permission for this KAY ACOSTA to call and get the information. TC to [facility] information obtained. TC to Erich at [facility] Retail pharmacy, pt will have no copay and it will be here by tomorrow. Tubed written script to retail pharamcy at this time. Pt agreeable to this and will pick med up tomorrow. Pt states no concerns with going home at time of dc. Pt states no further concerns/needs. CM to follow. Advised pt to ask CM if any further question/concerns/needs arise, voices understanding. Pt Goal: Home Plan: Home
--- NOTE | 2021-10-18 10:52 | PCM.DC.SUM ---
Providers Date of Admission: 10/16/21 Date of Discharge: 10/18/21 Primary Care Physician: Macho Valdes Consultations 10/17/21 12:49 Consult: Infectious Disease Routine Consulting Provider: Woodrow Keen Reason for Consult: C diff relappse EMERGENT Consult: No MD Notified: Yes Date Notified: 10/17/21 Time Notified: 12:00 Method of Notification: Verbal Reason For Visit: POSSIBLE CDIFF, ASCITES Diagnosis Discharge Diagnosis (1) Ascites due to alcoholic cirrhosis: Status: Acute Code(s): K70.31 - Alcoholic cirrhosis of liver with ascites (2) C. difficile colitis: Status: Acute Code(s): A04.72 - Enterocolitis due to Clostridium difficile, not specified as recurrent Medications at Discharge Home Medications acamprosate 666 mg PO TID 10/16/21 cholecalciferol (vitamin D3) 1,250 mcg PO DANIEL 10/16/21 escitalopram oxalate [Lexapro] 10 mg PO DAILY 10/16/21 gabapentin 300 mg PO QHS 10/16/21 spironolactone 100 mg PO DAILY 10/16/21 fidaxomicin [Dificid] 200 mg PO BID 10 Days #20 tab 10/17/21 furosemide 40 mg PO DAILY #0 tab 10/18/21 lactulose 20 g PO DAILY #0 ml 10/18/21 Hospital Course Summary of Care Provided Hospital Course: This 36-year-old female was admitted to ER for increased abdominal pain, ascites with refractory diarrhea. On further work-up she was found C. difficile positive even though she completed 7 days of vancomycin course. Further hospital course, diagnosis, assessment and evaluation as follows 1. Relapsed C. difficile colitis: Patient C. difficile returned after completing 7-day course of vancomycin actually her diarrhea was better but never resolved and recurred with large volume frequent diarrhea. Currently on vancomycin. ID consult reviewed and appreciated. Recommended 10 days COURSE of Dificid course at discharge. Prescription given by ID. 2. Decompensated alcoholic cirrhosis with large volume ascites: Patient gets paracentesis every 2 weeks. Patient had large volume paracentesis about 9 L lakesha-colored fluid. Patient had IV albumin. On IV albumin. Discussed with material handling technician and fluid not sent for culture, cell count or chemistry even though it was ordered. Low suspicion for SBP as patient does not have rebound tenderness and antibiotic not given empirically because of C. difficile. Patient follows [facility] transplant clinic and has follow-up next week. She gets paracentesis. She also had esophageal varices banding done about 2 3 years ago. She complained of feeling swelling in the perineal region but not perianal area or hemorrhoid. I asked to further inspect and examined under the nurses but she was reluctant and refused. Advised to follow-up with direct service provider and clerical secretary in [facility]. 3. Decompensated alcoholic cirrhosis: Patient is sober for last 1 year. Follows transplant hepatology clinic in the [facility] undergoing evaluation for liver transplant listing. Patient smokes and is aware that she has to quit. Patient is COVID-19 vaccinated x2, overdue for the booster. She agreed to get it here. 4. VTE prophylaxis: Not indicated given her observation status. Discharge medication reconciliation done. Discharge follow-up instructions completed. Discharge process discussed with the patient and all questions were answered to patient's satisfaction. Total time spent, exact 35 minutes on discharge meds reconciliation, examination, coordination of care with nurses and ancillary staff, review of imaging and blood test and discussion with the patient on follow-up instructions. Physical Exam Narrative General: Alert, Oriented x3, Cooperative HEENT: Atraumatic, PERRLA, EOMI, Normocephalic Oral: No Gingival or Mucosal Lesions/ Ulcerations Neck: Supple, No JVD, Negative Carotid Bruits Lungs: Air entry diminished in bilateral lung bases. No crepitation/rhonchi Cardiovascular: Regular rate, Regular Rhythm, Normal S1, Normal S2, No murmurs Abdomen: Soft, ascites much decreased after paracentesis. Bowel sounds present. No tenderness or rebound tenderness. : No renal angle tenderness. No suprapubic tenderness. Extremities: No edema, Capillary Refill Less than 3 Seconds Skin: Dilated superficial abdominal veins. No rashes, No breakdown Musculoskeletal: No Tenderness to Palpation of Joints or Extremities Neurological: Cranial nerves II-XII grossly intact, DTR 2+/4 and Symmetrical, Neuro grossly intact Psych/Mental Status: Flat affect. Weight / BMI Weight Weight: 144 lb 13.499 oz Body Mass Index (BMI) 22.6 ABG / Lab / Microbiology Data Result Diagrams: 10/18/21 05:49 10/18/21 05:49 Laboratory: Laboratory Results - last 24 hr 10/18/21 05:49: WBC 12.3 H, RBC 2.72 L, Hgb 8.1 L, Hct 24.7 L, MCV 90.8, MCH 29.8, MCHC 32.8, RDW Std Deviation 50.4 H, RDW Coeff of [place] 15.4 H, Plt Count 236, MPV 9.2, Immature Gran % (Auto) 0.300, Neut % (Auto) 67.2, Lymph % (Auto) 22.0, [place] % (Auto) 6.9, Eos % (Auto) 2.5, Baso % (Auto) 1.1 H, Absolute Neuts (auto) 8.3 H, Absolute Lymphs (auto) 2.71, Nucleated RBC % 0 10/18/21 05:49: Sodium 128 L, Potassium 3.3 L, Chloride 94 L, Carbon Dioxide 27.0, Anion Gap 7, BUN 4 L, Creatinine 0.82, Estim Creat Clear Calc 94.01, Est GFR (MDRD) Af Amer 102, Est GFR (MDRD) Non-Af 84, BUN/Creatinine Ratio 4.9 L, Glucose 161 H, Calcium 7.9 L, Total Bilirubin 1.40 H, AST 27, ALT 15, Alkaline Phosphatase 133 H, Total Protein 5.1 L, Albumin 2.6 L, Globulin 2.5, Albumin/Globulin Ratio 1.0 Microbiology: Microbiology 10/16/21 20:26 Stool C. difficile GDH Antigen & Toxins - Final 10/16/21 20:26 Stool C. difficile DNA Amplification - Final Radiography Diagnostic Testing: Radiology Impression Paracentesis Ultrasound 10/16/21 19:33 IMPRESSION: Ultrasound guided paracentesis. Electronically Signed: Obie Mijares MD at 15:25 EST , D/C Instructions Discharge Diet: 2000 mg Sodium Diet Call your doctor if you observe: Fever of 101 or Higher, Coldness, Increased Pain, Numbness or Tingling, Change in Color, Inability to urinate, Inability to have a bowel movement, Shortness of breath, Dizziness, Fainting spells, Swelling in the ankles, Chest pain, Prolonged hiccupping, Increased palpitations (irregular heartbeat), Calf discomfort and Uncontrolled pain Meaningful Use Info Meaningful Use Diagnoses (Choose all that apply): None applicable Discharge Plan Admission Admit Date/Time: 10/16/21 18:36 Primary Reason for Your Visit: C. difficile colitis Attending Provider: Eugene Fish Consulting Providers: Woodrow Keen Instructions Additional Instructions / Restrictions: Patient has appointment at the transplant clinic [facility] next week. She has history of esophageal varices status post banding, ascites features of decompensated cirrhosis. Discharge Orders/Prescriptions Prescriptions: New Dificid 200 mg tablet 200 mg PO BID 10 Days Qty: 20 RF: 0 Continued spironolactone 100 mg Tablet 100 mg PO DAILY RF: 0 gabapentin 300 mg Capsule 300 mg PO QHS RF: 0 escitalopram oxalate [Lexapro] 10 mg Tablet 10 mg PO DAILY RF: 0 acamprosate 333 mg Tablet,Delayed Release (Dr/Ec) 666 mg PO TID RF: 0 cholecalciferol (vitamin D3) 1,250 mcg (50,000 unit) Capsule 1,250 mcg PO DANIEL RF: 0 furosemide 40 mg Tablet 40 mg PO DAILY Qty: 0 RF: 0 lactulose 20 gram/30 mL Solution 20 g PO DAILY Qty: 0 RF: 0 Referrals / Follow Up: [facility] Valdes [Other] - In 1 Week (For lab C. difficile.) Disposition Discharge Orders: Discharge Patient (Routine); Ordered 10/18/21 Ordered By: Dr. Eugene Fish Charges/Coding Visit Charges Inpatient E&M: 18106 Disch Hosp
== END 2021-10-18 13:51 | disposition home or self-care (01) | DRG 248 ==
LOC: ED 15:43 → MS3 19:41
PROVIDERS: Emergency Provider Emergency Medicine; Visit Provider Internal Medicine
DX: A04.72 Enterocolitis due to Clostridium difficile, not specified as recurrent (principal); K70.31 Alcoholic cirrhosis of liver with ascites; F17.210 Nicotine dependence, cigarettes, uncomplicated; F41.9 Anxiety disorder, unspecified; Z23 Encounter for immunization; Z79.899 Other long term (current) drug therapy; F32.A Depression, unspecified
CPT/HCPCS: 0064A; 36415; 49083; 80053; 81001; 83690; 83735; 85025; 85610; 87493; 91306; 97802; 99284; 99406; J7030; J7050; P9047; A4216; J2405